=== PATIENT | male | born 2005 | race African-American/Black ===

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

== ENCOUNTER 2024-04-08 18:21 | Emergency (ER) | payer MEDICAID ==
[~2024-04-08] VITALS: Ht 185.4 cm; Wt 81.0 kg
[2024-04-08 18:24] VITALS: BP 140/89; PULSE 70; RESP 14; TEMP 36.6; O2SAT 100
[2024-04-08 20:39] LABS: CHLORIDE 105 mEq/L (98-107); SODIUM 139 mEq/L (136-145)
[2024-04-08 20:40] LABS: CARBON DIOXIDE 27 mEq/L (21-32)
[2024-04-08 20:41] LABS: CALCIUM 9.6 mg/dL (8.7-10.4)
[2024-04-08 20:42] LABS: BASOPHILS % 0.9 % (0.0-2.0); DIFFERENTIAL COMMENT 0; EOSINOPHILS % 0.7 % (0.0-5.0); HEMATOCRIT. 47.5 % (42.0-52.0); HEMOGLOBIN. 14.5 g/dL (14.0-18.0); LYMPHOCYTES % 33.1 % (20.0-50.0); MEAN CORPUSCULAR HGB CONC 30.4 g/dL (31.0-37.0); MEAN CORPUSCULAR VOLUME 72.2 fL (80.0-94.0); MEAN PLATELET VOLUME 8.3 fl (7.4-10.4); NEUTROPHILS % 60.3 % (40.0-76.0); PLATELET 282 x1000/uL (130-400); RED BLOOD CELL COUNT 6.58 mill/uL (4.7-6.1); RED CELL DISTRIBUTION WIDTH 14.2 % (11.6-14.6); WHITE BLOOD COUNT 3.7 x1000/uL (4.5-11.0)
[2024-04-08 20:45] LABS: CREATININE 0.9 mg/dL (0.6-1.3); GLUCOSE 83 mg/dL (70-105); UREA NITROGEN BLOOD 9 mg/dL (9-23)
[2024-04-08] MEDS ORDERED: IBUP-2029 MT (21:01)
[2024-04-08] MEDS ORDERED: ACET-2708 MT (21:01)
== END 2024-04-08 21:33 | disposition home or self-care (01) ==
LOC: ER 18:21
DX: S09.8XXA Other specified injuries of head, initial encounter (principal); J45.909 Unspecified asthma, uncomplicated; X58.XXXA Exposure to other specified factors, initial encounter; Y93.89 Activity, other specified; Y92.89 Other specified places as the place of occurrence of the external cause; Y99.8 Other external cause status
CPT/HCPCS: 80048; 85025; 36415; 70450; 93005; 99284; Z7610 ×2